=== PATIENT | female | born 1960 | race Caucasian/White ===

== ENCOUNTER 2019-07-09 06:28 | Inpatient (IN) ==
--- NOTE | 2019-06-04 10:04 | PAT Medication Instructions ---
Medication Instructions Date of Service June 04, 2019 Home Medications escitalopram oxalate [Lexapro] 5 mg PO QAM meloxicam 7.5 mg PO DAILY PRN ASK your surgeon for instructions meloxicam 7.5 mg PO DAILY PRN Take morning of surgery With a small sip of water, OTHERWISE NOTHING TO EAT OR DRINK AFTER MIDNIGHT: escitalopram oxalate [Lexapro] 5 mg PO QAM Other Notes If you have any questions please call us at [phone] or [phone] or [phone] or [phone]
--- NOTE | 2019-06-08 12:57 | Anesthesiology Consultation ---
Date of Service June 08, 2019 Assessment & Plan (1) Encounter for pre-operative examination: Chart Review Chart Review: Acceptable Risk for Surgery and Patient seen in Pre Admission Testing Teaching & Discussion Pre-Anesthesia Teaching/Discussion Notes: Instructed NPO after midnight before surgery,except medications with 15 cc of water. Medication instructions provided according to the PAT guidelines. History Surgery Operation Date: 07/09/19 07:00 Proposed Procedures p Left Total Knee Arthroplasty - Jere Lopez MD Height/Weight Height: 5 ft 10.5 in Weight: 121.9 kg Allergies Allergy/AdvReac Type Severity Reaction Status Date / Time Sulfa (Sulfonamide Allergy ? rash, Verified 06/08/19 13:14 Antibiotics) hives, dyspepsia (see comments) Medications Home Medications Medication Instructions Recorded Confirmed Last Taken escitalopram oxalate [Lexapro] 5 mg PO QAM 06/03/19 06/03/19 Unknown meloxicam 7.5 mg PO DAILY PRN 06/03/19 06/03/19 Unknown Past Medical History Medical History Anxiety GERD (gastroesophageal reflux disease) hx/no current issues Obesity Exercise / Class Metabolic Activity III < 4 Walking/Shop/Light housework Past Surgical History Surgical History Hx of arthroscopic knee surgery left Hx of esophagogastroduodenoscopy Past Anesthesia History No Hx of Anesthesia Complications and No Family Hx of Anesthesia Complications History of PONV No Hx of PONV and No Hx of Motion Sickness Social History Smoking Status: Never smoker Do You Dip or Chew Tobacco: No Hx Alcohol Use: Yes alcohol intake frequency: a few times a month Hx Substance Use: No substance use type: does not use Review of Systems Remote hx of reflux. Patient denies chest pain, shortness of breath, cough, wheezing, palpitations. Physical Exam Vital Signs VITALS BP 119/79 P 85 TEMP 98.1 SP02 93%RA RESP 16 PHYSICAL Full neck and c-spine range of motion. Full TMJ range of motion. TMD 3 finger breaths Mallampati Score 1 Dentition: intact, crown on molar, upper left side implant Lungs: clear throughout to auscultation Cardiac: regular rate and rhythm, no murmurs noted Spine: normal Carotid arteries: negative bruit Extremities: no edema Testing Laboratory Results 06/08/19 13:26 06/08/19 13:26 PT 10.4 Seconds (9.0-12.0) 06/08/19 13:26 INR 1.0 (0.9-1.1) 06/08/19 13:26 APTT 23.8 Seconds (21.0-31.0) 06/08/19 13:26 Hemoglobin A1c 6.1 % (4.5-5.6) H 06/08/19 13:26 Urine Color Yellow 06/08/19 13:26 Urine Appearance Clear (Clear) 06/08/19 13:26 Urine pH 6.5 (4.5-7.5) 06/08/19 13:26 Ur Specific [place] 1.021 (1.000-1.030) 06/08/19 13:26 Urine Protein Negative (Negative) 06/08/19 13:26 Urine Glucose (UA) Negative (Negative) 06/08/19 13:26 Urine Ketones Negative (Negative) 06/08/19 13:26 Urine Nitrite Negative (Negative) 06/08/19 13:26 Ur Leukocyte Esterase Negative (Negative) 06/08/19 13:26 Blood Type A Negative 06/08/19 13:26 Antibody Screen NEGATIVE 06/08/19 13:26 Electrocardiogram Date: 06/08/19 Findings: + NSR @ (71) Chest X-Ray Date: 06/08/19 Findings: + NAD
--- NOTE | 2019-06-08 13:51 | XRay Report ---
XR chest Pre-admission PA/Lat CLINICAL HISTORY: Preoperative evaluation. COMPARISON STUDY: No previous studies for comparison. FINDINGS: Lung volumes are normal. Lungs are clear. There is no pneumothorax or pleural effusion. Car diac size is normal. Mediastinal contours are normal. There is no evidence for pulmonary edema. IMPRESSION: No acute cardiopulmonary findings. Electronically signed by: Adin Gray M.D. 06/08/2019 1:50 PM
[2019-06-08 14:21] LABS: Basophils # (auto) 0.01 K/uL (0-0.2); Basophils % (auto) 0.1 %; Eosinophils # (auto) 0.24 K/uL (0-0.5); Eosinophils % (auto) 2.6 %; Hematocrit (blood only) 41.1 % (37-47); Hemoglobin 13.4 g/dL (12.0-16.0); Immature Granulocytes # (auto) 0.02 K/uL (0.00-0.02); Immature Granulocytes % (auto) 0.2 %; Lymphocytes # (auto) 3.12 K/uL (1.2-3.4); Mean Corpuscular Hemoglobin 30.3 pg (25-34); Mean Corpuscular Hgb Conc 32.6 g/dL (32-36); Mean Platelet Volume 9.9 fL (7.4-10.4); Monocytes # (auto) 0.39 K/uL (0.11-0.59); Monocytes % (auto) 4.2 %; Neutrophils % (auto) 58.9 %; Platelet Count 349 K/uL (130-400); RDW Coefficient of Variation 13.5 % (11.5-14.5); RDW Standard Deviation 45.7 fL (36.4-46.3); Red Blood Count 4.42 M/uL (4.2-5.4); White Blood Count 9.18 K/uL (4.8-10.8)
[2019-06-08 14:37] LABS: Appearance Urine Clear (Clear); Bilirubin Urine Negative (Negative); Blood Urine Negative (Negative); Color Urine Yellow; Glucose Urine UA Negative (Negative); Ketones Urine Negative (Negative); Leukocyte Esterase Urine Negative (Negative); Nitrite Urine Negative (Negative); Protein Urine Negative (Negative); Specific Gravity Urine 1.021 (1.000-1.030); Urobilinogen Urine Negative (Negative); pH Urine 6.5 (4.5-7.5)
[2019-06-08 14:43] LABS: Partial Thromboplastin Ratio 0.9; Partial Thromboplastin Time 23.8 Seconds (21.0-31.0); Prothrombin Time 10.4 Seconds (9.0-12.0)
[2019-06-08 14:55] LABS: Albumin Level 3.7 gm/dl (3.4-5.0); BUN Creatinine Ratio 15.5 (10-20); Calcium 9.6 mg/dl (8.5-10.1); Creatinine Clr Calc Pharmacy 76.1 ml/min; Est GFR (African American) 62.1; Est GFR (Non-African American) 53.6; Potassium 4.7 mmol/L (3.5-5.1)
[2019-06-08 15:10] LABS: Estimated Average Glucose 128 mg/dl; Hemoglobin A1C 6.1 % (4.5-5.6)
--- NOTE | 2019-06-26 09:12 | History & Physical Report ---
Date of Service June 26, 2019 Assessment & Plan (1) Primary osteoarthritis of left knee: Left knee osteoarthritis that is affecting her ability to carry out normal activities. She has failed conservative measures as above. Treatment options discussed. Risks, benefits and alternatives to surgery including but not limited to infection, DVT, pain, stiffness, need for revision surgery, damage to blood vessels, damage to nerves, PE, , were discussed with the patient and they wish to proceed. Plan will be for left total knee arthroplasty on 07/09/19 at [facility]. Will plan on aspirin 81mg BID x 30 days post operatively. Will plan on outpatient PT upon discharge from the hospital. We will plan on using Prineo and dermabond with stratafix suture for skin closer. All questions answered. F/u post operatively. History of Present Illness Chief Complaint: Left knee pain Primary Care Provider: Romain Johnson MD Patient is a 59 year old female with PMHx significant for GERD and anxiety presents with complaints of ongoing bilateral knee pain, left > right. Pain is affecting her ability to carry out her normal daily activities. She has failed conservative therapy including cortisone injections, antiinflammatories, and viscoelastic injections. She would like to proceed with left total knee arthroplasty. Patient denies headaches, sweats, fevers, chills, double vision, blurred vision, cough, sore throat, dysphagia, chest pain, sob, wheezing, n/v/d/c, numbness, tingling, fatigue, urinary symptoms, mood disorders. ROS positive for bilateral pain and stiffness. Allergies Allergy/AdvReac Type Severity Reaction Status Date / Time Sulfa (Sulfonamide Allergy ? rash, Verified 06/08/19 13:14 Antibiotics) hives, dyspepsia (see comments) Home Medications Home Medications Medication Instructions Recorded Confirmed Type escitalopram oxalate [Lexapro] 5 mg PO QAM 06/03/19 06/03/19 History meloxicam 7.5 mg PO DAILY PRN 06/03/19 06/03/19 History Past Med/Surg History Medical History Anxiety GERD (gastroesophageal reflux disease) hx/no current issues Obesity Surgical History Hx of arthroscopic knee surgery left Hx of esophagogastroduodenoscopy Social History Preferred Language: Malian Communication Ability: Effective Rotary Surface Grinder Required: No Beliefs That Will Affect Care: None Current Living Situation: Spouse Other Information That Helps Us Care for You: No Feels Safe at Home: Yes Safety Concerns: Feels Safe At This Time Smoking Status: Never smoker Do You Dip or Chew Tobacco: No ; Second Hand Exposure: No ; Tobacco Cessation Education Requested by Patient: No Hx Alcohol Use: Yes Hx Substance Use: No Review of Systems All systems reviewed & are unremarkable except as noted in HPI & below Physical Exam Constitutional: well developed and well nourished; no acute distress Eyes: PERRL, conjunctivae normal, anicteric sclerae ENMT: external ear and nose normal, oropharynx normal Neck: trachea midline, no thyromegaly Respiratory: normal respiratory effort, lungs clear to auscultation Cardiovascular: RRR, no murmur, no edema Musculoskeletal: Left knee: Tenderness medial joint line, positive Onel's. Mild varus deformity. Mild effusion. ROM 0-125 Skin: no rashes, warm and dry Neurologic: patellar DTR's 2+ bilat, sensation intact Psychiatric: A+Ox3, euthymic affect Results & Data Laboratory Results Lab Results 06/08/19 06/08/19 06/08/19 Range/Units 13:26 13:26 13:26 WBC 9.18 (4.8-10.8) K/uL RBC 4.42 (4.2-5.4) M/uL Hgb 13.4 (12.0-16.0) g/dL Hct 41.1 (37-47) % MCV 93.0 (80-100) fL MCH 30.3 (25-34) pg MCHC 32.6 (32-36) g/dL RDW Std Deviation 45.7 (36.4-46.3) fL RDW Coeff of Issa 13.5 (11.5-14.5) % Plt Count 349 (130-400) K/uL MPV 9.9 (7.4-10.4) fL Immature Gran % (Auto) 0.2 % Neut % (Auto) 58.9 % Lymph % (Auto) 34.0 % [place] % (Auto) 4.2 % Eos % (Auto) 2.6 % Baso % (Auto) 0.1 % Immature Gran # (Auto) 0.02 (0.00-0.02) K/uL Neut # (Auto) 5.40 (1.4-6.5) K/uL Lymph # (Auto) 3.12 (1.2-3.4) K/uL [place] # (Auto) 0.39 (0.11-0.59) K/uL Eos # (Auto) 0.24 (0-0.5) K/uL Baso # (Auto) 0.01 (0-0.2) K/uL PT 10.4 (9.0-12.0) Seconds INR 1.0 (0.9-1.1) APTT 23.8 (21.0-31.0) Seconds PTT Ratio 0.9 Sodium 141 (136-145) mmol/L Potassium 4.7 (3.5-5.1) mmol/L Chloride 105 (98-107) mmol/L Carbon Dioxide 29 (21-32) mmol/L Anion Gap 6.0 (3-11) BUN 17 (7-18) mg/dl Creatinine 1.11 (0.6-1.2) mg/dl Est Cr Clr Drug Dosing 76.1 ml/min Est GFR ( Amer) 62.1 Est GFR (Non-Af Amer) 53.6 BUN/Creatinine Ratio 15.5 (10-20) Glucose 112 H (70-99) mg/dl Estimat Average Glucose mg/dl Hemoglobin A1c (4.5-5.6) % Calcium 9.6 (8.5-10.1) mg/dl Albumin 3.7 (3.4-5.0) gm/dl Urine Color Urine Appearance (Clear) Urine pH (4.5-7.5) Ur Specific [place] (1.000-1.030) Urine Protein (Negative) Urine Glucose (UA) (Negative) Urine Ketones (Negative) Urine Blood (Negative) Urine Nitrite (Negative) Urine Bilirubin (Negative) Urine Urobilinogen (Negative) Ur Leukocyte Esterase (Negative) Blood Type Antibody Screen 06/08/19 06/08/19 06/08/19 Range/Units 13:26 13:26 13:26 WBC (4.8-10.8) K/uL RBC (4.2-5.4) M/uL Hgb (12.0-16.0) g/dL Hct (37-47) % MCV (80-100) fL MCH (25-34) pg MCHC (32-36) g/dL RDW Std Deviation (36.4-46.3) fL RDW Coeff of Issa (11.5-14.5) % Plt Count (130-400) K/uL MPV (7.4-10.4) fL Immature Gran % (Auto) % Neut % (Auto) % Lymph % (Auto) % [place] % (Auto) % Eos % (Auto) % Baso % (Auto) % Immature Gran # (Auto) (0.00-0.02) K/uL Neut # (Auto) (1.4-6.5) K/uL Lymph # (Auto) (1.2-3.4) K/uL [place] # (Auto) (0.11-0.59) K/uL Eos # (Auto) (0-0.5) K/uL Baso # (Auto) (0-0.2) K/uL PT (9.0-12.0) Seconds INR (0.9-1.1) APTT (21.0-31.0) Seconds PTT Ratio Sodium (136-145) mmol/L Potassium (3.5-5.1) mmol/L Chloride (98-107) mmol/L Carbon Dioxide (21-32) mmol/L Anion Gap (3-11) BUN (7-18) mg/dl Creatinine (0.6-1.2) mg/dl Est Cr Clr Drug Dosing ml/min Est GFR ( Amer) Est GFR (Non-Af Amer) BUN/Creatinine Ratio (10-20) Glucose (70-99) mg/dl Estimat Average Glucose 128 mg/dl Hemoglobin A1c 6.1 H (4.5-5.6) % Calcium (8.5-10.1) mg/dl Albumin (3.4-5.0) gm/dl Urine Color Yellow Urine Appearance Clear (Clear) Urine pH 6.5 (4.5-7.5) Ur Specific [place] 1.021 (1.000-1.030) Urine Protein Negative (Negative) Urine Glucose (UA) Negative (Negative) Urine Ketones Negative (Negative) Urine Blood Negative (Negative) Urine Nitrite Negative (Negative) Urine Bilirubin Negative (Negative) Urine Urobilinogen Negative (Negative) Ur Leukocyte Esterase Negative (Negative) Blood Type A Negative Antibody Screen NEGATIVE Diagnostic Findings Left knee: [id number] medial compartment with osteophyte formation medial tibial plateau and medial femoral condyle, as well as laterally. She has degenerative changes at the PF joint.
[~2019-07-09 06:28] MED LIST: ACETAMINOPHEN 500 MG TAB PO SCH; BUPIVACAINE 0.5 % 5 MG/1 ML PF 10ML VIAL ONE; CEFAZOLIN 3000MG 72.5 ML IV SCH; CeleBREX 200 MG CAP PO SCH; FAMOTIDINE 20 MG TAB PO SCH; GABAPENTIN 600 MG DOSE PO SCH; LR 500ML BOLUS, THEN 15ML/HR IV SCH; METOCLOPRAMIDE HCL 10 MG TABLET PO SCH; OXYCODONE HCL 10 MG TABCR (OXYCONTIN) PO SCH; ROPIVACAINE 0.5% HCL/PF 150 MG, BUPIVACAINE 0.5% MPF 30 ML, EPINEPHrine 30MG/30ML (OR U... INSTIL SCH; TRANEXAMIC ACID 1,000 MG **IV Intra-op IV SCH; TRANEXAMIC ACID 1,000 MG **IV Pre-op IV SCH; dexAMETHasone 4 MG TAB PO SCH
[2019-07-09] MEDS ORDERED: fentaNYL citrate 100 MCG/2 ML VIAL ONE (06:55)
[2019-07-09] MEDS ORDERED: MIDAZOLAM HCL 1 MG/ML 2ML VIAL ONE (06:55)
--- NOTE | 2019-07-09 07:02 | History & Physical Bridge Note ---
Date of Service July 09, 2019 History & Physical Bridge Note I have examined the patient, reviewed the History & Physical and in the interval since the performance of the History & Physical I have noted the following changes of clinical significance: no changes noted
[2019-07-09] MEDS ORDERED: ORTHO JOINT ANESTHETIC ONE (07:14)
[2019-07-09] MEDS ORDERED: BACITRACIN INJ 50,000 UNIT VIAL ONE (07:14)
[2019-07-09] MEDS ORDERED: ePHEDrine sulfate 50 MG/ML AMP IV PRN (08:12)
[2019-07-09] MEDS ORDERED: fentaNYL citrate 100 MCG/2 ML VIAL IV PRN (08:12)
[2019-07-09] MEDS ORDERED: ONDANSETRON INJ 2 MG/ML 2 ML VIAL IV PRN ×2 (08:12→12:33)
[2019-07-09] MEDS ORDERED: ATROPINE SULFATE 0.1 MG/ML 10ML SYR IV PRN (08:12)
[2019-07-09] MEDS ORDERED: PROPOFOL IV EMULSION 10 MG/ML 20 ML VIAL IV ONE (09:53)
[2019-07-09] MEDS ORDERED: DEXAMETHASONE SOD INJ 4 MG/ML VIAL ONE (09:53)
[2019-07-09] MEDS ORDERED: ONDANSETRON INJ 2 MG/ML 2 ML VIAL ONE (09:53)
--- NOTE | 2019-07-09 10:19 | Operative Report ---
Post Operative Report Pre & Post Diagnosis Operation Date: 07/09/19 09:00 Pre-Op Diagnosis: Left Knee Osteoarthritis Post-Op Diagnosis: Left Knee Osteoarthritis I identified the patient and participated in the time-out.: Yes Procedure Operation Date: 07/09/19 09:00 Actual Procedures p Left Total Knee Arthroplasty(Left) - Jere Lopez MD Surgeon Jere Lopez MD Filter Press Tender Trevon Mora PA-C Estimated Blood Loss 20 Findings Consistent with Post-Op Diagnosis Specimens Bone and tissue Drains 2 Hemovac Anesthesia Type MAC Spinal Regional Complications none Disposition Accompanied Patient To Recovery: No Disposition: Recovery Room Indications The patient is a 59-year-old female longstanding arthritic change of the left knee. She is [id number] in the medial compartment. She has failed conservative measures including injection, anti-inflammatories, rehab. She wishes to proceed with a left total knee arthroplasty Description of Procedure Risks benefits and alternatives of surgery including but not limited to infection, DVT, pain, stiffness, need for surgery, damage to blood vessels, iveth ge to nerves or risks of anesthesia were discussed with the patient and they wished to proceed. The patient was identified and the laterality was confirmed and marked. They received a preoperative antibiotic as well as a spinal anesthetic and an abductor canal block. A well-padded tourniquet was applied and then the limb was prepped and draped in standard manner with ChloraPrep. The limb was exsanguinated and the tourniquet was inflated. I made a standard anterior incision. I sharply incised the skin then utilized Bovie electrocautery as well as the aqua mantis to achieve hemostasis. I made a medial parapatellar arthrotomy and mobilized the patella laterally. I then excised the anterior horns of the medial and lateral meniscus as well as the infrapatellar fat pad. I elevated a portion of the MCL off of the tibia. I drilled centrally into the femoral canal and then placed a alignment lynn into the femur. I then placed a 5 valgus guide into position. I made my distal cut. I then pinned into place the femoral sizing guide and determined my femoral size. Adjustments were made as necessary to ensure proper rotation and that we would not notch the femur. I then pinned into place the 5 in 1 femoral cutting guide. I made my anterior, posterior and chamfer cuts. I then excised the cruciates and the remaining portions of the menisci. I then pinned into place a extra medullary tibial cutting guide. I then made my tibial resection. I then pinned into place the tibial plate a utilizing alignment lynn to confirm rotation. I then cut for the post. Utilizing a lamina blanker press operator and I then removed posterior osteophytes off the femur. I then placed a trial femur into position and cut for the trochlear component. I then sequentially trialed to size the polyethylene until there was good soft tissue balancing and range of motion. I then prepared the patella with a freehand cut utilizing sagittal saw. I sized and drilled for the patella. There was good tracking to the patella no lateral release was needed. All the trial components were removed. The deep tissues were anesthetized with an ortho mix solution. Then with Simplex HV with gentamicin cement, I cemented my definitive components. Definitive components, Moreno and Nephew Ramrio 2: Femur 6 Tibia 5 Poly 10 Patella 32 oval A betadine soak was performed. A deep drain was placed. The arthrotomy was closed with interrupted #1 Vicryl suture subcutaneous tissue was closed with interrupted 2-0 Vicryl suture. The skin was closed with with moshe. A stephanie wound VAC was placed. Sterile dressings were applied. All needle and sponge counts were correct at the end of the procedure patient was transferred to the PACU in stable condition without apparent complication. The PA-C was necessary for assistance with procedure for assistance in positioning, prepping, draping, retraction and closure. I attest to the content of the Intraoperative Record and any orders documented therein. Any exceptions are noted below.
--- NOTE | 2019-07-09 11:13 | XRay Report ---
TWO VIEWS LEFT KNEE CLINICAL HISTORY: Postoperative examination. FINDINGS: AP and crosstable lateral portable views of the left knee are obtained. A left knee arthrop lasty is in near anatomic alignment. There has been undersurface remodeling of the patella. No acute fracture is seen. There are expected postoperative changes around the knee including a surgical drain , soft tissue edema, and subcutaneous gas. IMPRESSION: Expected postoperative changes status post left knee arthroplasty. No acute fracture is s een. ACT 112: Negative or not required by law. Electronically signed by: Shivam Rainey M.D. 07/09/2019 11:12 AM
--- NOTE | 2019-07-09 12:26 | Anesthesiology Progress Note ---
Date of Service July 09, 2019 Anesthesia Post Procedure Vital Signs Vital Signs: Temp Pulse Pulse Resp BP BP Pulse Ox 07/09/19 11:55 69 15 114/69 97 07/09/19 11:40 98.8 F 63 12 126/79 96 07/09/19 11:30 70 12 127/75 97 07/09/19 11:20 65 12 123/71 96 07/09/19 11:10 72 12 119/70 94 07/09/19 11:00 71 12 107/71 93 07/09/19 10:53 98.2 F 79 18 128/62 96 07/09/19 07:13 97.9 F 68 16 130/67 93 Pain Intensity Bilateral Knee: Pain Intensity: 3 Transfer of Care Handoff Completed per policy Notes Mental Status: alert / awake / arousable and participated in evaluation Patient Amnestic to Procedure: Yes Nausea / Vomiting: adequately controlled Pain: adequately controlled Airway Patency, RR, SpO2: stable & adequate BP & HR: stable & adequate Hydration State: stable & adequate Neuraxial Anesthesia: was administered and sensory block is resolving Anesthetic Complications: no major complications apparent and Pt Satisfied with anesthetic care
[2019-07-09] MEDS ORDERED: KETOROLAC 30 MG/ML VIAL IV PRN (12:33)
[2019-07-09] MEDS ORDERED: MAGNESIUM HYDROXIDE SUSP 30 ML UDC PO PRN (12:33)
[2019-07-09] MEDS ORDERED: SODIUM CHLORIDE 0.9% 1000ML 1,000 ML IV SCH (12:33)
[2019-07-09] MEDS ORDERED: bisacodyL 10 MG SUPP PR PRN (12:33)
[2019-07-09] MEDS ORDERED: HYDROmorphone INJ 0.5 MG/0.5 ML SYR IV PRN (12:33)
[2019-07-09] MEDS ORDERED: NALOXONE HCL 0.4 MG/1 ML VIAL/CARP IV PRN (12:33)
[2019-07-09] MEDS: ACETAMINOPHEN 500 MG TAB PO SCH ×2 (14:01→21:41)
[2019-07-09] MEDS: CEFAZOLIN 2000MG 2,000 MG/15 ML SYR IV SCH (17:59)
[2019-07-09] MEDS: DOCUSATE SODIUM 100 MG CAP PO SCH (20:04)
[2019-07-09] MEDS: SENNA 8.6 MG TAB PO SCH (20:04)
[2019-07-09] MEDS: OXYCODONE HCL IR 5 MG TAB (IMMEDIATE RELEASE) PO PRN (20:04)
[2019-07-09] MEDS: ASPIRIN 81 MG ECTAB PO SCH (20:04)
[2019-07-10] MEDS: CEFAZOLIN 2000MG 2,000 MG/15 ML SYR IV SCH (01:09)
[2019-07-10] MEDS: ACETAMINOPHEN 500 MG TAB PO SCH ×3 (05:22→21:35)
[2019-07-10 06:09] LABS: Hemoglobin 11.3 g/dL (12.0-16.0); Mean Corpuscular Hgb Conc 32.3 g/dL (32-36); Mean Platelet Volume 9.9 fL (7.4-10.4); Platelet Count 277 K/uL (130-400); RDW Coefficient of Variation 13.1 % (11.5-14.5); RDW Standard Deviation 42.7 fL (36.4-46.3); Red Blood Count 3.89 M/uL (4.2-5.4); White Blood Count 16.26 K/uL (4.8-10.8)
[2019-07-10 06:46] LABS: BUN Creatinine Ratio 20.8 (10-20); Calcium 8.6 mg/dl (8.5-10.1); Creatinine Clr Calc Pharmacy 84.6 ml/min; Est GFR (African American) 70.4; Est GFR (Non-African American) 60.8; Potassium 4.3 mmol/L (3.5-5.1)
--- NOTE | 2019-07-10 07:23 | Orthopedic Progress Note ---
Date of Service July 10, 2019 Assessment & Plan (1) S/P total knee arthroplasty: POD#1 Left TKA -PT/OT -Pain management -DVT prophylaxis-SCDs, TEDs, ASA 81mg BID -AM labs-hemoglobin 11.1 this morning from 13.4 preop -D/C planning-plans on outpatient PT. Discharge possibly later today depending on hemovac output, more likely tomorrow. Subjective POD#1 Left TKA. She is doing well overall, pain well controlled. Denies chest pain, sob, wylie, n/v/d. Review of Systems Review of Systems: All systems reviewed & are unremarkable except as noted in HPI & below Physical Exam Physical Exam: Left knee: Dressing c/d/i, Hemovac in place. Toes mobile, good dorsiflexion, no calf tenderness. Distally n/v status and sensation intact. Results & Data Vital Signs (Past 12 Hours) Vital Signs Temp Pulse Resp BP Pulse Ox 07/10/19 03:22 36.5 C 62 16 107/67 97 07/09/19 23:15 36.6 C 68 20 102/60 96 07/09/19 19:42 36.5 C 76 16 122/79 91 Laboratory Results H & H 06/08/07/10/19 Range/Units 13:26 04:56 Hgb 13.4 11.3 L (12.0-16.0) g/dL Hct 41.1 35.0 L (37-47) % Coagulation 06/08/19 Range/Units 13:26 INR 1.0 (0.9-1.1) (1) S/P total knee arthroplasty Laterality: left Qualified Code(s): Z96.652 - Presence of left artificial knee joint
--- NOTE | 2019-07-10 08:13 | Anesthesiology Progress Note ---
Date of Service July 10, 2019 Anesthesia Post Procedure Vital Signs Vital Signs: Temp Pulse Pulse Resp BP BP Pulse Ox 07/10/19 07:17 36.6 C 66 13 124/80 94 07/10/19 03:22 36.5 C 62 16 107/67 97 07/09/19 23:15 36.6 C 68 20 102/60 96 07/09/19 19:42 36.5 C 76 16 122/79 91 07/09/19 15:19 36.5 C 67 16 124/83 97 07/09/19 14:07 36.4 C L 66 16 105/70 98 07/09/19 13:27 64 16 117/80 98 07/09/19 12:50 36.6 C 62 16 109/73 99 07/09/19 12:10 36.6 C 69 18 113/78 93 07/09/19 11:55 69 15 114/69 97 07/09/19 11:40 37.1 C 63 12 126/79 96 07/09/19 11:30 70 12 127/75 97 07/09/19 11:20 65 12 123/71 96 07/09/19 11:10 72 12 119/70 94 07/09/19 11:00 71 12 107/71 93 07/09/19 10:53 36.8 C 79 18 128/62 96 Pain Intensity Bilateral Knee: Pain Intensity: 3 Left Knee: Pain Intensity: 4 Notes Mental Status: alert / awake / arousable and participated in evaluation Patient Amnestic to Procedure: Yes Nausea / Vomiting: adequately controlled Pain: adequately controlled Airway Patency, RR, SpO2: stable & adequate BP & HR: stable & adequate Hydration State: stable & adequate Neuraxial Anesthesia: was administered and sensory block resolved Anesthetic Complications: no major complications apparent and Pt Satisfied with anesthetic care
[2019-07-10] MEDS: MULTIVITAMIN TAB PO SCH (08:56)
[2019-07-10] MEDS: ASPIRIN 81 MG ECTAB PO SCH ×2 (08:56→20:21)
[2019-07-10] MEDS: OXYCODONE HCL IR 5 MG TAB (IMMEDIATE RELEASE) PO PRN ×2 (08:56→23:39)
[2019-07-10] MEDS: DOCUSATE SODIUM 100 MG CAP PO SCH ×2 (08:56→20:21)
[2019-07-10] MEDS: ESCITALOPRAM OXALATE 10 MG TAB PO SCH (08:56)
[2019-07-10] MEDS: LORATADINE 10 MG TAB PO SCH (11:33)
[2019-07-10] MEDS: SENNA 8.6 MG TAB PO SCH (20:21)
[2019-07-11] MEDS: OXYCODONE HCL IR 5 MG TAB (IMMEDIATE RELEASE) PO PRN ×2 (00:50→08:37)
[2019-07-11] MEDS: ACETAMINOPHEN 500 MG TAB PO SCH (05:46)
--- NOTE | 2019-07-11 07:24 | Orthopedic Progress Note ---
Date of Service July 11, 2019 Assessment & Plan (1) S/P total knee arthroplasty: POD#2 Left TKA -PT/OT -Pain management -DVT prophylaxis-SCDs, TEDs, ASA 81mg BID -D/C planning-plans on outpatient PT today. Subjective POD#2 Left TKA. She is doing well overall, pain well controlled. Denies chest pain, sob, wylie, n/v/d. Physical Exam Physical Exam: Left knee incision c/d/i, no drainage. Mesh/ glue in tact Toes/ ankle mobile No calf tenderness A&Ox3. Results & Data Vital Signs (Past 12 Hours) Vital Signs Temp Pulse Resp BP Pulse Ox 07/10/ 23:24 36.7 C 59 L 16 119/80 96 (1) S/P total knee arthroplasty Laterality: left Qualified Code(s): Z96.652 - Presence of left artificial knee joint
[2019-07-11] MEDS: MULTIVITAMIN TAB PO SCH (08:33)
[2019-07-11] MEDS: DOCUSATE SODIUM 100 MG CAP PO SCH ×2 (08:33→08:35)
[2019-07-11] MEDS: LORATADINE 10 MG TAB PO SCH (08:33)
[2019-07-11] MEDS: ASPIRIN 81 MG ECTAB PO SCH (08:33)
[2019-07-11] MEDS: ESCITALOPRAM OXALATE 10 MG TAB PO SCH (08:33)
== END 2019-07-11 09:46 | disposition home or self-care (01) | DRG 470 ==
LOC: ASU 06:28 → 3E 10:58

== ENCOUNTER 2020-04-28 11:24 | Inpatient (IN) ==
--- NOTE | 2020-04-10 08:41 | History & Physical Report ---
Date of Service April 10, 2020 Assessment & Plan (1) Primary osteoarthritis of right knee: Right knee osteoarthritis that is affecting her ability to carry out normal activities. She has failed conservative measures as above. Treatment options discussed. Risks, benefits and alternatives to surgery including but not limited to infection, DVT, pain, stiffness, need for revision surgery, damage to blood vessels, damage to nerves, PE, , were discussed with the patient and they wish to proceed. Plan will be for right total knee arthroplasty on 04/28/20 at [facility]. Will plan on aspirin 81mg BID x 30 days post operatively. Will plan on outpatient PT upon discharge from the hospital. We will plan on using Prineo and dermabond with stratafix suture for skin closer. All questions answered. F/u post operatively. History of Present Illness Chief Complaint: Right knee pain Primary Care Provider: Lubna Finn PA-C Patient is a 59 year old female with PMHx significant for GERD and anxiety presents with complaints of ongoing right knee pain. Pain is affecting her ability to carry out her normal daily activities. She has failed conservative therapy including cortisone injections, antiinflammatories, and viscoelastic injections. She would like to proceed with rightt total knee arthroplasty. Previously underwent left knee replacement and has done well. Patient denies headaches, sweats, fevers, chills, double vision, blurred vision, cough, sore throat, dysphagia, chest pain, sob, wheezing, n/v/d/c, numbness, tingling, fatigue, urinary symptoms, mood disorders. ROS positive for right knee pain and stiffness. Allergies Allergy/AdvReac Type Severity Reaction Status Date / Time Sulfa (Sulfonamide Allergy ? rash, Verified 07/09/19 07:04 Antibiotics) hives, dyspepsia (see comments) Home Medications Home Medications Medication Instructions Recorded Confirmed Type escitalopram oxalate [Lexapro] 5 mg PO QAM 06/03/19 07/09/19 History meloxicam 7.5 mg PO DAILY PRN 06/03/19 07/09/19 History acetaminophen 1,000 mg PO Q8 #60 tab 07/10/19 Rx aspirin [Ecotrin Low Strength] 81 mg PO BID #60 tab 07/10/19 Rx oxycodone 5 - 10 mg PO .Q4H-6H PRN #30 tab 07/10/19 Rx oxycodone 5 - 10 mg PO Q4H PRN #30 tab 07/11/19 Rx Past Med/Surg History Medical History (Updated 04/10/20 @ 08:39 by Baron Joyner) Anxiety GERD (gastroesophageal reflux disease) hx/no current issues Obesity Surgical History (Updated 07/10/19 @ 07:23 by Baron Joyner) Hx of arthroscopic knee surgery left Hx of esophagogastroduodenoscopy Social History Smoking Status: Never smoker Second Hand Exposure: No; Hx Alcohol Use: Yes Hx Substance Use: No Preferred Language: Guamanian Communication Ability: Effective Staff Radiographer Required: No Beliefs That Will Affect Care: None marital status: Current Living Situation: Spouse Feels Safe at Home: Yes Assistive Devices: Walker Review of Systems All systems reviewed & are unremarkable except as noted in HPI & below Physical Exam Constitutional: well developed and well nourished; no acute distress Eyes: PERRL, conjunctivae normal, anicteric sclerae ENMT: external ear and nose normal, oropharynx normal Neck: trachea midline, no thyromegaly Respiratory: normal respiratory effort, lungs clear to auscultation Cardiovascular: RRR, no murmur, no edema Musculoskeletal: Right knee: Medial joint line tenderness, mild effusion. Stable to valgus and varus stress. Positive Onel's. ROM 0-125 Skin: no rashes, warm and dry Neurologic: patellar DTR's 2+ bilat, sensation intact Psychiatric: A+Ox3, euthymic affect Results & Data ([facility]) Diagnostic Findings Right knee: Bone on bone articulation medial compartment with periarticular osteophyte formation and subchondral sclerosis.
--- NOTE | 2020-04-12 13:13 | Anesthesiology Consultation ---
Date of Service April 12, 2020 Assessment & Plan (1) Encounter for pre-operative examination: - Per assessment on 04/12: Travel screen negative. No known COVID-19 positive contacts or current COVID-19 related symptoms. Surgeon arranging preop COVID t esting (scheduled at [facility]). Awaiting results. - S/P Left TKA: 07/09/19: SAB x 1 attempt at L4-L5 + PNB at [facility] Chart Review Chart Review: Acceptable Risk for Surgery and Patient NOT seen in Pre Admission Testing History Surgery Operation Date: 04/28/20 11:20 Proposed Procedures p Right Total Knee Arthroplasty - Jere Lopez MD Height/Weight Height: 5 ft 10.5 in Weight: 113.398 kg Allergies Allergy/AdvReac Type Severity Reaction Status Date / Time Sulfa (Sulfonamide Allergy ? rash, Verified 04/12/20 12:26 Antibiotics) hives, dyspepsia (see comments) Medications Home Medications Medication Instructions Recorded Confirmed Last Taken escitalopram oxalate [Lexapro] 5 mg PO QAM 06/03/19 04/12/20 07/09/19 05:15 meloxicam 7.5 mg PO DAILY PRN 06/03/19 04/12/20 07/06/19 acetaminophen 1,000 mg PO Q8 PRN 04/12/20 04/12/20 Unknown Past Medical History Medical History Anxiety Arthritis GERD (gastroesophageal reflux disease) hx/no current issues Obesity Past Surgical History Surgical History History of bilateral tubal ligation History of colonoscopy History of total knee replacement Left TKA: 07/09/19: SAB x 1 attempt at L4-L5 + PNB at [facility] Hx of arthroscopic knee surgery left Hx of esophagogastroduodenoscopy Social History Smoking Status: Former smoker Do You Dip or Chew Tobacco: No Smoking End Date: QUIT 1976 Hx Alcohol Use: Yes Alcohol type: beer alcohol intake frequency: a few times a month Hx Substance Use: No substance use type: does not use Testing Laboratory Results 03/18/20 WBC 9.98 H/H 12.9/40.5 PLATELETS 333 SODIUM 144 POTASSIUM 4.5 CHLORIDE 104 CO2 28 BUN 15 CREATININE 1.0 GLUCOSE 116 HGBA1C 6.3% UA negative (enterococcus species per urine culture/PCP aware) Electrocardiogram Date: 04/12/20 Findings: + NSR @ (76) Chest X-Ray Date: 06/08/19 Findings: + NAD
[~2020-04-28 11:24] MED LIST changes: +BUPIVACAINE 0.25% 30 ML VIAL ONE; +BUPIVACAINE LIPOSOME/PF 266 MG, BUPIVACAINE/EPINEPHRINE 50 ML, SODIUM CHLORIDE 0.9% 30 ... INFIL SCH; -CEFAZOLIN 3000MG 72.5 ML IV SCH; +DEXAMETHASONE SOD INJ 4 MG/ML VIAL ONE; +EPINEPHrine INJ 1 MG/ML AMP ONE; +KETAMINE 50 MG/5 ML SYRINGE ONE; +LR 500ML BOLUS IV SCH; -OXYCODONE HCL 10 MG TABCR (OXYCONTIN) PO SCH; +ROPIVACAINE 0.5% HCL/PF 150 MG, BUPIVACAINE 0.5% MPF 30 ML, EPINEPHrine 30MG/30ML (OR U... INFIL SCH; -ROPIVACAINE 0.5% HCL/PF 150 MG, BUPIVACAINE 0.5% MPF 30 ML, EPINEPHrine 30MG/30ML (OR U... INSTIL SCH; +ceFAZolin 2000MG 2,000 MG/15 ML SYR IV SCH; -dexAMETHasone 4 MG TAB PO SCH
[2020-04-28] MEDS ORDERED: MIDAZOLAM HCL 1 MG/ML 2ML VIAL ONE (11:46)
[2020-04-28] MEDS ORDERED: GLYCOPYRROLATE 0.2 MG/ML VIAL ONE (11:48)
[2020-04-28] MEDS ORDERED: ONDANSETRON INJ 2 MG/ML 2 ML VIAL ONE (11:48)
[2020-04-28] MEDS ORDERED: LIDOCAINE HCL 2% 2 ML VIAL/AMP(20MG/ML) INFIL ONE (11:48)
[2020-04-28] MEDS ORDERED: PROPOFOL IV EMULSION 10 MG/ML 20 ML VIAL IV ONE ×2 (11:48→17:03)
[2020-04-28] MEDS: dexAMETHasone 4 MG TAB PO SCH ×2 (12:06→12:07)
[2020-04-28] MEDS ORDERED: TRANEXAMIC ACID / 0.7% NACL 1000MG/100ML BAG IV ONE (13:23)
[2020-04-28] MEDS ORDERED: fentaNYL citrate 100 MCG/2 ML VIAL IV PRN (13:57)
[2020-04-28] MEDS ORDERED: ONDANSETRON INJ 2 MG/ML 2 ML VIAL IV PRN ×2 (13:57→18:38)
[2020-04-28] MEDS ORDERED: ePHEDrine sulfate 50 MG/ML AMP IV PRN (13:57)
[2020-04-28] MEDS ORDERED: ATROPINE SULFATE 0.1 MG/ML 10ML SYR IV PRN (13:57)
[2020-04-28] MEDS ORDERED: BACITRACIN INJ 50,000 UNIT VIAL ONE (14:33)
[2020-04-28] MEDS ORDERED: ORTHO JOINT ANESTHETIC ONE (14:33)
--- NOTE | 2020-04-28 14:46 | History & Physical Bridge Note ---
Date of Service April 28, 2020 History & Physical Bridge Note I have examined the patient, reviewed the History & Physical and in the interval since the performance of the History & Physical I have noted the following changes of clinical significance: no changes noted
--- NOTE | 2020-04-28 17:07 | Operative Report ---
Post Operative Report Pre & Post Diagnosis Operation Date: 04/28/20 13:35 Pre-Op Diagnosis: Unilateral Primary Osteoarthritis Post-Op Diagnosis: Unilateral Primary Osteoarthritis I identified the patient and participated in the time-out.: Yes Procedure Operation Date: 04/28/20 13:35 Actual Procedures p Right Total Knee Arthroplasty(Right) - Jere Lopez MD Surgeon Jere Lopez MD Green Chain Marker Baron Joyner PA-C Estimated Blood Loss 20 Findings Consistent with Post-Op Diagnosis Specimens Bone and tissue Drains None Anesthesia Type MAC Spinal Regional Complications none Disposition Accompanied Patient To Recovery: No Disposition: Recovery Room Indications The patient is a 59-year-old female worsening arthritic change in the right knee. She is [id number] in the medial compartment. She has failed conservative measures including injection, anti-inflammatories, rehab. She wishes to proceed with a total knee arthroplasty. Description of Procedure Risks benefits and alternatives of surgery including but not limited to infection, DVT, pain, stiffness, need for surgery, damage to blood vessels, damage to nerves or risks of anesthesia were discussed with the patient and they wished to proceed. The patient was identified and the laterality was confirmed and marked. They received a preoperative antibiotic as well as a spinal anesthetic and an abductor canal block. A well-padded tourniquet was applied and then the limb was prepped and draped in standard manner with ChloraPrep. The limb was exsanguinated and the tourniquet was inflated. I made a standard anterior incision. I sharply incised the skin then utilized Bovie electrocautery to achieve hemostasis. I made a medial parapatellar arthrotomy and mobilized the patella laterally. I then excised the anterior horns of the medial and lateral meniscus as well as the infrapatellar fat pad. I elevated a portion of the MCL off of the tibia. I then pinned into place a patient-matched distal femoral cutting guide and made my distal femoral resection. I then pinned into place the 5 in 1 femoral cutting guide. I made my anterior, posterior and chamfer cuts. I then excised the cruciates and the remaining portions of the menisci. I then pinned into place a patient- matched tibial cutting guide and made my tibial resection. I then pinned into place the tibial plate a utilizing alignment lynn to confirm rotation. I then cut for the post. Utilizing a lamina extruder operator horizontal and I then removed posterior osteophytes off the femur. I then placed a trial femur into position and cut for the trochlear component. I then sequentially trialed to size the polyethylene until there was good soft tissue balancing and range of motion. I then prepared the patella with a freehand cut utilizing sagittal saw. I sized and drilled for the patella. There was good tracking to the patella no lateral release was needed. All the trial components were removed. The deep tissues were anesthetized with an ortho mix solution. Then with Simplex HV with gentamicin cement, I cemented my definitive components. Definitive components, More[employer]hew Journey 2: Femur 5 Tibia 5 Poly 11 Patella 35 oval A betadine soak was performed. The arthrotomy was closed with interrupted #1 Vicryl suture subcutaneous tissue was closed with interrupted 2-0 Vicryl suture. The skin was closed with with Prineo. An Acticoat and Cory dressing were placed. Sterile dressings were applied. All needle and sponge counts were correct at the end of the procedure patient was transferred to the PACU in stable condition without apparent complication. The PA-C was necessary for assistance with procedure for assistance in positioning, prepping, draping, retraction and closure. I attest to the content of the Intraoperative Record and any orders documented therein. Any exceptions are noted below.
--- NOTE | 2020-04-28 18:06 | XRay Report ---
XR knee RT 1 or 2V routine CLINICAL HISTORY: Surgical Post Op COMPARISON: 01/27/2010 DISCUSSION: There are postsurgical changes of a total right knee arthroplasty and patellar resurfacin g. The femoral tibial components appear well seated. There is gas present within the soft tissues con sistent with recent surgery. IMPRESSION: Postsurgical changes of a total right knee arthroplasty. ACT 112: Negative or not required by law. Electronically signed by: Yuriy José M.D. 04/28/2020 6:04 PM
--- NOTE | 2020-04-28 18:13 | Anesthesiology Progress Note ---
Date of Service April 28, 2020 Anesthesia Post Procedure Vital Signs Vital Signs: Temp Pulse Pulse Resp BP BP Pulse Ox 04/28/20 18:00 81 16 123/72 96 04/28/20 17:50 81 16 121/72 98 04/28/20 17:41 36.8 C 87 12 115/69 98 04/28/20 11:55 36.7 C 74 20 142/90 H 95 Transfer of Care Handoff Completed per policy Notes Mental Status: alert / awake / arousable Patient Amnestic to Procedure: Yes Nausea / Vomiting: adequately controlled Pain: adequately controlled Airway Patency, RR, SpO2: stable & adequate BP & HR: stable & adequate Hydration State: stable & adequate Anesthetic Complications: no major complications apparent
[2020-04-28] MEDS ORDERED: METOCLOPRAMIDE HCL INJ 5 MG/ML 2 ML VIAL IV PRN (18:38)
[2020-04-28] MEDS ORDERED: bisacodyL 10 MG SUPP PR PRN (18:38)
[2020-04-28] MEDS ORDERED: NALOXONE HCL 0.4 MG/1 ML VIAL/CARP IV PRN (18:38)
[2020-04-28] MEDS ORDERED: SODIUM CHLORIDE 0.9% 1000ML 1,000 ML IV SCH (18:38)
[2020-04-28] MEDS ORDERED: MAGNESIUM HYDROXIDE SUSP 30 ML UDC PO PRN (18:38)
[2020-04-28] MEDS ORDERED: oxyCODONE HCL IR 5 MG TAB (IMMEDIATE RELEASE) PO PRN (18:38)
[2020-04-28] MEDS ORDERED: HYDROmorphone INJ 0.5 MG/0.5 ML SYR IV PRN (18:38)
[2020-04-28] MEDS ORDERED: SENNA 8.6 MG TAB PO SCH (21:00)
[2020-04-28] MEDS: KETOROLAC TROMETHAMINE 15 MG/ML VIAL IV SCH (21:03)
[2020-04-28] MEDS: ACETAMINOPHEN 500 MG TAB PO SCH (21:03)
[2020-04-28] MEDS: ASPIRIN 81 MG ECTAB PO SCH (21:03)
[2020-04-28] MEDS: DOCUSATE SODIUM 100 MG CAP PO SCH (21:03)
[2020-04-28] MEDS: ceFAZolin 2000MG 2,000 MG/15 ML SYR IV SCH (21:57)
[2020-04-29] MEDS: KETOROLAC TROMETHAMINE 15 MG/ML VIAL IV SCH ×2 (01:21→09:02)
[2020-04-29] MEDS: ACETAMINOPHEN 500 MG TAB PO SCH (05:15)
[2020-04-29] MEDS: ceFAZolin 2000MG 2,000 MG/15 ML SYR IV SCH (06:23)
[2020-04-29 07:08] LABS: Hematocrit (blood only) 35.9 % (37-47); Hemoglobin 11.6 g/dL (12.0-16.0); Mean Corpuscular Hemoglobin 29.2 pg (25-34); Mean Corpuscular Hgb Conc 32.3 g/dL (32-36); Mean Corpuscular Volume 90.4 fL (80-100); Mean Platelet Volume 9.6 fL (7.4-10.4); Platelet Count 298 K/uL (130-400); RDW Standard Deviation 43.4 fL (36.4-46.3); Red Blood Count 3.97 M/uL (4.2-5.4); White Blood Count 16.89 K/uL (4.8-10.8)
[2020-04-29 07:38] LABS: BUN Creatinine Ratio 19.9 (10-20); Calcium 8.3 mg/dl (8.5-10.1); Creatinine Clr Calc Pharmacy 75.1 ml/min; Est GFR (African American) 62.8; Est GFR (Non-African American) 54.1; Potassium 4.3 mmol/L (3.5-5.1)
--- NOTE | 2020-04-29 07:44 | Orthopedic Progress Note ---
Date of Service April 29, 2020 Assessment & Plan (1) Primary osteoarthritis of left knee: POD#1 Right TKA -PT/OT -Pain management -DVT prophylaxis-[id number] bid, SCDs, TEDs -AM labs-leukocytosis likely due to preop steroids and surgical stress. Hemoglobin stable at 11.6 from 12.9 preop. -D/C planning-home with plan on outpatient PT, likely today after PT Admission and Anticipated Discharge Date Admission Date: April 28, 2020 Subjective Patient is POD#1 right TKA. She is doing well this morning, pain well controlled. Ambulating well. Denies chest pain, sob, fever, chills, n/v/d, light headedness, dizziness. Review of Systems Review of Systems: All systems reviewed & are unremarkable except as noted in HPI & below Physical Exam Physical Exam: Right knee dressing is c/d/i, no calf tenderness. Distally n/v status and sensation are intact. Toes are mobile with good dorsiflexion Constitutional: well developed and well nourished; no acute distress Results & Data ([facility]) Vital Signs (Past 12 Hours) Vital Signs Temp Pulse Resp BP BP Pulse Ox 04/29/20 03:30 36.5 C 68 16 123/78 90 04/28/20 23:42 36.5 C 68 16 147/87 H 94 04/28/20 21:40 36.4 C L 83 16 124/78 92 04/28/20 20:32 36.6 C 75 16 133/85 96
[2020-04-29] MEDS ORDERED: MULTIVITAMIN TAB PO SCH (09:00)
[2020-04-29] MEDS ORDERED: ESCITALOPRAM OXALATE 10 MG TAB PO SCH (09:00)
[2020-04-29] MEDS: ASPIRIN 81 MG ECTAB PO SCH (09:01)
[2020-04-29] MEDS: DOCUSATE SODIUM 100 MG CAP PO SCH (09:02)
[2020-04-29] MEDS ORDERED: MELOXICAM 7.5 MG TAB PO PRN (14:01)
--- NOTE | 2020-04-29 14:49 | Discharge Summary ---
Date of Service April 29, 2020 Admission HPI Per Admitting Provider Patient is a 59 year old female with PMHx significant for GERD and anxiety presents with complaints of ongoing right knee pain. Pain is affecting her ability to carry out her normal daily activities. She has failed conservative therapy including cortisone injections, antiinflammatories, and viscoelastic injections. She would like to proceed with rightt total knee arthroplasty. Previously underwent left knee replacement and has done well. Patient denies headaches, sweats, fevers, chills, double vision, blurred vision, cough, sore throat, dysphagia, chest pain, sob, wheezing, n/v/d/c, numbness, tingling, fatigue, urinary symptoms, mood disorders. ROS positive for right knee pain and stiffness. Admission Exam Per Admitting Provider Constitutional: well developed and well nourished; no acute distress Eyes: PERRL, conjunctivae normal, anicteric sclerae ENMT: external ear and nose normal, oropharynx normal Neck: trachea midline, no thyromegaly Respiratory: normal respiratory effort, lungs clear to auscultation Cardiovascular: RRR, no murmur, no edema Musculoskeletal: Right knee: Medial joint line tenderness, mild effusion. Stable to valgus and varus stress. Positive Onel's. ROM 0-125 Skin: no rashes, warm and dry Neurologic: patellar DTR's 2+ bilat, sensation intact Psychiatric: A+Ox3, euthymic affect Principal Diagnosis Right knee osteoarthritis Discharge Exam Constitutional well developed and well nourished; no acute distress Eyes PERRL, conjunctivae normal, anicteric sclerae ENMT external ear and nose normal, oropharynx normal Neck trachea midline, no thyromegaly Respiratory normal respiratory effort, lungs clear to auscultation Cardiovascular RRR, no murmur, no edema Skin no rashes, warm and dry Neurologic patellar DTR's 2+ bilat, sensation intact Psychiatric A+Ox3, euthymic affect Discharge Data Allergies Allergy/AdvReac Type Severity Reaction Status Date / Time Sulfa (Sulfonamide Allergy ? rash, Verified 04/28/20 11:53 Antibiotics) hives, dyspepsia (see comments) Consultations 04/28/20 18:38 Consult Case Management - Discharge Planning Routine Procedures Performed Operation Date: 04/28/20 13:35 Actual Procedures p Right Total Knee Arthroplasty(Right) - Jere Lopez MD Ordered Studies 04/28/20 05:00 US - OR guided needle placemen Routine Hospital Course (1) Primary osteoarthritis of left knee: Patient presented for same day admission following right total knee arthroplasty on 04/28/20. She tolerated procedure well. The Patient had an uneventful hospital course. Post-operatively, his/her activity was progressed and well tolerated. They participated in PT with ambulation distance of 300 feet. ROM of operative knee reached 82 degrees. Labs remained stable- lowest hemoglobin recorded: 11.6. Pain controlled on oral medications. Please refer to daily progress notes and PT notes for complete details. After exam on 04/29/20, patient was felt to be stable for discharge home with plans on attending outpatient PT. Patient will f/u in the office in about 2 weeks for further evaluation including x-rays and incision check, sooner if having any issues or concerns. POD#1 Right TKA -PT/OT -Pain management -DVT prophylaxis-[id number] bid, SCDs, TEDs -AM labs-leukocytosis likely due to preop steroids and surgical stress. Hemoglobin stable at 11.6 from 12.9 preop. -D/C planning-home with plan on outpatient PT, likely today after PT Total Time Total Time Spent Total Time Spent (In Minutes): 20 Discharge Plan Discharge Items Patient Disposition: Home - Self-Care Reason For Visit: Unilateral Primary Osteoarthritis Discharge Diagnosis: Right knee osteoarthritis Activity: Per Instructions section Non-emergency contact: Surgeon Call non-emergency contact if: you have any medication questions, your pain is not controlled, your pain is worsening, your pain is concerning for you, you have a fever, your temperature is above 101, your wound has increased redness and your wound has increased drainage Follow-up/Referrals: Lubna Finn PA-C [Primary Care Provider] - Diet: Regular Addtl Attending Provider Instructions: ACTIVITY RECOMMENDATIONS: SELF CARE INSTRUCTIONS AFTER TOTAL KNEE REPLACEMENT A. You may need to continue a physical therapy program after discharge from the hospital. There are several options available to you. Your doctor will assist you in selecting the best one for you. 1. An out-patient facility 2 to 3 times a week for therapy or home therapy. 2. Continue working on all exercises taught to you in the hospital. Your goals should be to increase bending of your knee to 90 degrees and beyond and to fully straighten your knee. B. You may progress at your own pace from walking with a walker or crutches to a cane; then to no assistive devices. C. Make walking a part of your daily routine. Be up as much as comfortable with rest periods throughout the day. Rest with leg elevation is very important. Use the ice wrap frequently for the first 3-4 weeks. D. There are no restrictions on activities. You may ride in a car, shop, participate in passenger attendant and all social activities. E. Wear the long elastic stockings (ANGELA hose) 20 hours a day for 2 weeks after surgery. They can be removed several times a day for laundering and for a bath. F. You may shower, no tub baths until cleared by your doctor. SPECIAL CARE INSTRUCTIONS: VERY IMPORTANT TO READ AND REVIEW A. There are a few signs you need to watch for after you are home. Call [facility] if you notice any of the followin. Increased severe knee pain. Some pain is expected especially when you exercise. 2. Increased swelling in your leg or knee; pain or swelling of the calf muscle in either lower leg. 3. Any fluid drainage from the incision. 4. Shortness of breath or chest pain. B. Please call [facility] at if you have any concerns or questions about your operation or recovery. The doctor or his nurse will return your call promptly. C. You must take antibiotics before dental work, bladder, bowel or other surgery. Your doctor will provide you with a permanent care to carry describing this precaution. IMPORTANT: * REMEMBER TO TAKE ASPIRIN, 81 MG, TWICE DAILY FOR 4 WEEKS UNLESS OTHERWISE DIRECTED. THIS IS YOUR BLOOD THINNER. * HIGH RISK PATIENTS MAY BE PRESCRIBED A STRONGER BLOOD THINNER. THIS WILL BE PROVIDED AT DISCHARGE. * CALL IF INCREASED PAIN, REDNESS, DRAINAGE OR FEVER GREATER THAT 101. * WEAR ANGELA HOSE 20 HOURS PER DAY FOR 2 WEEKS. This is a mesh tape dressing that is covered with glue. It should remain in place until the incision is properly healed, usually 10-14 days. This dressing is designed to naturally slough off. You may trim the excess mesh tape as it peels off. Incision may be briefly wet in a shower. Dry immediately by blotting with a clean, dry towel. Do not bath or swim until instructed by your doctor. Do not scratch, rub, or pick at the dressing. Do not apply any topical ointments or lotions until dressing is completely removed and/or instructed by your doctor. There may be a small piece of suture material at one end of your incision. Do not pull or trim this. If it is bothersome or catching on clothing, you may cover it with a band-aid. FOLLOW UP VISIT: If appointment is not already scheduled: Please call [facility] to make a follow-up appointment for 2 weeks after your surgery at . Pending Studies at Discharge: No Stand-Alone Forms: My [facility] [employer], Smoking Cessation Medications and DC Order Prescriptions: New aspirin 81 mg Tablet,Delayed Release (Dr/Ec) 81 mg PO BID Qty: 60 RF: 0 acetaminophen 500 mg Tablet 1,000 mg PO Q8 Qty: 60 RF: 0 oxycodone 5 mg Tablet 5 - 10 mg PO .Q4h-6h MDD 6 PRN (Reason: pain) Qty: 30 RF: 0 Continued meloxicam 7.5 mg Tablet 7.5 mg PO DAILY PRN (Reason: Pain) RF: 0 escitalopram oxalate [Lexapro] 5 mg Tablet 5 mg PO QAM RF: 0 Discontinued acetaminophen 500 mg tablet 1,000 mg PO Q8 PRN (Reason: Pain) RF: 0 Discharge Orders: Discharge Order (Routine); Ordered 04/29/20 Ordered By: Baron Joyner Admission Data Admit Date/Time: 04/28/20 17:46 Attending Provider: Jere Lopez Admit Provider: Jere Lopez Primary Care Provider: Lubna Finn Other Interventions: Discharge Summary Assessment (RN) Last Done: 04/29/20 10:38
--- NOTE | 2020-04-29 16:30 | Anesthesiology Progress Note ---
Date of Service April 29, 2020 late entry; pt seen at 0745 Anesthesia Post Procedure Vital Signs Vital Signs: Temp Pulse Pulse Resp BP BP Pulse Ox 04/29/20 10:38 36.5 C 62 68 18 123/78 122/81 96 04/29/20 10:37 36.5 C 62 68 18 123/78 122/81 96 04/29/20 08:11 36.5 C 62 18 122/81 96 04/29/20 03:30 36.5 C 68 16 123/78 90 04/28/20 23:42 36.5 C 68 16 147/87 H 94 04/28/20 21:40 36.4 C L 83 16 124/78 92 04/28/20 20:32 36.6 C 75 16 133/85 96 04/28/20 19:31 36.6 C 83 16 135/89 94 04/28/20 19:05 36.4 C L 80 16 124/81 94 04/28/20 18:30 37 C 82 16 126/84 92 04/28/20 18:19 86 18 128/79 100 04/28/20 18:10 36.6 C 78 17 133/81 91 04/28/20 18:00 81 16 123/72 96 04/28/20 17:50 81 16 121/72 98 04/28/20 17:41 36.8 C 87 12 115/69 98 Pain Intensity Right Leg: Pain Intensity: 0 Notes Mental Status: alert / awake / arousable and participated in evaluation Nausea / Vomiting: adequately controlled Pain: adequately controlled Airway Patency, RR, SpO2: stable & adequate BP & HR: stable & adequate Hydration State: stable & adequate Neuraxial Anesthesia: was administered and sensory block resolved Anesthetic Complications: no major complications apparent and Pt Satisfied with anesthetic care
== END 2020-04-29 10:57 | disposition home or self-care (01) | DRG 470 ==
LOC: ASU 11:24 → 3E 11:24 → OBSVTOIN 17:46